=== PATIENT | male | born 1980 | race Two or more races ===

== ENCOUNTER 2016-10-04 08:39 | Emergency (ER) | payer OTHER ==
[~2016-10-04] VITALS: Ht 175.3 cm; Wt 82.6 kg
[2016-10-04 08:50] VITALS: BP 136/72
[2016-10-04] MEDS ORDERED: IBUPROFEN 600 MG TABLET. PO ONE (09:45)
--- NOTE | 2016-10-04 10:10 | PHYS DOC ---
Past Medical History Past Medical History: No Pertinent History Past Surgical History: No Surgical History Alcohol Use: Occasionally Drug Use: None Adult General Chief Complaint Chief Complaint: KNEE INJURY HPI HPI Patient is a 36 year old male who presents with 2 weeks of left patella pain after blunt injury. Has achy anterior pain, worse with ROM and palpation, constant pain. Denies numbness, tingling, weakness, ankle pain or hip pain. Review of Systems Review of Systems Constitutional: Denies fever or chills [] Eyes: Denies change in visual acuity, redness, or eye pain [] HENT: Denies nasal congestion or sore throat [] Respiratory: Denies cough or shortness of breath [] Cardiovascular: No additional information not addressed in HPI [] GI: Denies abdominal pain, nausea, vomiting, bloody stools or diarrhea [] : Denies dysuria or hematuria [] Musculoskeletal: Denies back pain [] Integument: Denies rash or skin lesions [] Neurologic: Denies headache, focal weakness or sensory changes [] Endocrine: Denies polyuria or polydipsia [] Current Medications Current Medications Current Medications Medications (Trade) Dose Ordered Sig/Uzma Start Time Stop Time Status Last Admin Dose Admin Ibuprofen (Motrin) 600 mg 1X ONCE 10/04/16 09:45 10/04/16 09:46 DC Allergies Allergies Allergies Coded Allergies Type Severity Reaction Last Updated Verified No Known Drug Allergies 10/04/16 No Physical Exam Physical Exam Constitutional: Well developed, well nourished, no acute distress, non-toxic appearance. [] HENT: Normocephalic, atraumatic, bilateral external ears normal, oropharynx moist, nose normal. [] Eyes: PERRLA, EOMI. [] Neck: Normal range of motion, supple. [] Cardiovascular:Heart rate regular rhythm [] Lungs & Thorax: Bilateral breath sounds clear to auscultation [] Abdomen: Bowel sounds normal, soft, no tenderness. [] Skin: Warm, dry, no erythema, no rash. [] Back: Normal ROM. [] Extremities: LLE: No obvious deformity or discoloration; Has tenderness about left patella without visual or palpable abnormality; Able to flex/ex/IR/ER hip, knee full rom, ankle df/pf, toes df/pf; SILT dalton/sa/sp/dp/tib distributions; good dp and pt pulses equal bilaterally Neurologic: Alert and oriented X 3, normal motor function, normal sensory function, no focal deficits noted. [] Psychologic: Affect normal, judgement normal, mood normal. [] Current Patient Data Vital Signs Vital Signs Date Time Temp Pulse Resp B/P Pulse Ox O2 Delivery O2 Flow Rate FiO2 10/04/16 08:50 97.8 70 18 98 Room Air 97.8 Radiology/Procedures Radiology/Procedures XRay left knee as interpreted by me with no acute fracture or dislocation Course & Med Decision Making Course & Med Decision Making Pertinent Labs and Imaging studies reviewed. (See chart for details) Discussed supportive care and PCP f/u. Return precautions given. He understands and agrees with plan. Dragon Disclaimer Dragon Disclaimer This electronic medical record was generated, in whole or in part, using a voice recognition dictation system. Departure Departure Impression: Primary Impression: Left knee pain Disposition: HOME, SELF-CARE Condition: STABLE Referrals: KARINA ZUÑIGA MD (PCP) Patient Instructions: Knee Pain, [id number] Additional Instructions: Take Tylenol or ibuprofen as needed for pain. Follow-up with your primary care doctor. Return for any concerns. Problem Qualifiers Primary Impression: Left knee pain Chronicity: acute Qualified Code: M25.562 - Pain in left knee Bree LR MD Oct 04, 2016 10:10
--- NOTE | 2016-10-04 10:54 | RAD ---
Left knee with patella, 4 views, 10/04/2016: History: Fall, patellar pain No fracture or dislocation is identified. No significant arthritic change is seen. No joint effusion is evident. There appears to be mild subcutaneous edema anteriorly. IMPRESSION: No acute bony abnormality is detected.
== END 2016-10-04 10:18 | disposition home or self-care (01) ==
LOC: ER 08:39
DX: M25.562 Pain in left knee (principal)
CPT/HCPCS: 73564; 99284